=== PATIENT | female | born 1955 | race Caucasian/White ===

== ENCOUNTER 2018-04-19 11:45 | Outpatient (CLI) | payer BC ==
[~2018-04-19] VITALS: Ht 170.2 cm; Wt 95.3 kg
[2018-04-19 12:15] VITALS: BP 149/84
[2018-04-19] MEDS ORDERED: OMEG10005 PO (14:03)
[2018-04-19] MEDS ORDERED: LACT1CAP74 PO (14:03)
[2018-04-19] MEDS ORDERED: ASCO500C17 PO (14:03)
[2018-04-19] MEDS ORDERED: DILT180T9 PO (14:03)
[2018-04-19] MEDS ORDERED: ONCOPLEX PO (14:03)
[2018-04-19] MEDS ORDERED: ROSU10TA27 PO (14:03)
[2018-04-19] MEDS ORDERED: UBID100C17 PO (14:03)
[2018-04-19] MEDS ORDERED: CHOL200085 PO (14:03)
[2018-04-19] MEDS ORDERED: ASPI-586 PO (14:03)
[2018-04-19] MEDS ORDERED: GLUC100016 PO (14:03)
[2018-04-19] MEDS ORDERED: PREN-102 PO (14:03)
== END 2018-04-19 12:10 | disposition home or self-care (01) ==
LOC: PREOP 11:45
PROVIDERS: ATTEND Podiatrist Foot & Ankle Surgery
DX: Z01.818 Encounter for other preprocedural examination (principal)
CPT/HCPCS: 87081

== ENCOUNTER 2018-05-10 06:00 | Day surgery (SDC) | payer BC ==
[~2018-05-10] VITALS: Ht 170.2 cm; Wt 95.3 kg
[~2018-05-10 06:00] MED LIST: ASCO500C17 PO; ASPI-586 PO; CHOL200085 PO; DILT180T9 PO; GLUC100016 PO; LACT1CAP74 PO; OMEG10005 PO; ONCOPLEX PO; PREN-102 PO; ROSU10TA27 PO; UBID100C17 PO
[2018-05-10 06:10] VITALS: BP 135/78
--- OUTSIDE RECORDS SUMMARY | 2018-05-10 06:14 | XMS REPORT | Clinical Summary ---
Author Author Admin, LUIS Organization [facility] [place] Address Unknown Phone Unavailable Allergies, Adverse Reactions, Alerts Allergy Name Reaction Description Start Date Severity Status Provider SULFA Critical Active Ana Elder Conditions or Problems Problem Name Problem Code Onset Date Status Entry Date Provider Comment Standard Description Annotate Uterine Prolapse Active Jann Conklin MD Bladder Prolapse Active Jann Conklin MD Unspecified disorder of bladder Rectocele Active Jann Conklin MD Rectocele Female stress incontinence 625.6 Active Jann Conklin MD Stress incontinence, female Medication List Medication Instructions Start Date Stop Date Generic Name NDC Status Provider Patient Instruction CARDIZEM LA 180 MG ORAL TABLET EXTENDED RELEASE 24 HOUR DILTIAZEM HCL COATED BEADS 72256038968 Active Jann Conklin MD Active CRESTOR 10 MG ORAL TABLET ROSUVASTATIN CALCIUM 82571576527 Active Jann Conklin MD Active ZOCOR 20 MG ORAL TABLET 1 tab by mouth daily SIMVASTATIN 84144056860 No Longer Active Jann Conklin MD Active FISH OIL 1000 MG ORAL CAPSULE DELAYED RELEASE 1 pill by mouth twice daily for cholesterol OMEGA-3 FATTY ACIDS 77311658036 No Longer Active Jann Conklin MD Active CALCIUM CARBONATE 1500 (600 Ca) MG ORAL TABLET 1 tab by mouth daily CALCIUM CARBONATE 98134841150 No Longer Active Jann Conklin MD Active CVS URQQNQGHXZD-WCMFSOCYC-BWZ 500-400-167 MG ORAL TABLET 1 tab by mouth daily ZISBZXHXPYA-FMOJPUEKMFW-IJK 08726581468 Active Ana Elder Active LOVAZA 1 GM ORAL CAPSULE 1 tab by mouth three times daily SPEAI-3-ZLAA ETHYL ESTERS 00327787226 Active Ana Elder Active PROBIOTIC DAILY ORAL CAPSULE 1 pill twice daily PROBIOTIC PRODUCT 14544491651 Active Ana Elder Active ASPIRIN 81 MG ORAL TABLET DELAYED RELEASE 1 po qd ASPIRIN 27613061474 Active Ana Elder Active VITAMIN D3 1000 UNIT ORAL CAPSULE 1 po qd CHOLECALCIFEROL 87286623267 Active Ana Elder Active COQ10 100 MG ORAL CAPSULE 1 pill twice daily COENZYME Q10 08042966564 Active Ana Elder Active CALCIUM CARBONATE 1500 (600 Ca) MG ORAL TABLET 1 tab by mouth daily CALCIUM CARBONATE 1500 (600 Ca) MG ORAL TABLET 411287 CALCIUM CARBONATE Inactive FISH OIL 1000 MG ORAL CAPSULE DELAYED RELEASE 1 pill by mouth twice daily for cholesterol FISH OIL 1000 MG ORAL CAPSULE DELAYED RELEASE OMEGA-3 FATTY ACIDS Inactive ZOCOR 20 MG ORAL TABLET 1 tab by mouth daily ZOCOR 20 MG ORAL TABLET 311335 SIMVASTATIN Inactive Advance Directives Directive Description Start Date PERMISSION TO SHARE Vital Signs Date Name Value Unit Range Description blood pressure, diastolic 80 mm[Hg] BP russell blood pressure, systolic 132 mm[Hg] BP sys pulse rate E&M 88 /min Heart rate temperature E&M 98.2 [degF] Body temperature weight E&M 207 [lb_av] Weight Measured blood pressure, diastolic 78 mm[Hg] BP russell blood pressure, systolic 131 mm[Hg] BP sys pulse rate E&M 91 /min Heart rate temperature E&M 98.3 [degF] Body temperature weight E&M 202 [lb_av] Weight Measured blood pressure, diastolic 74 mm[Hg] BP russell blood pressure, systolic 140 mm[Hg] BP sys height E&M 67 [in_us] Bdy height pulse rate E&M 91 /min Heart rate temperature E&M 98.4 [degF] Body temperature weight E&M 205.5 [lb_av] Weight Measured Encounters Code Encounter Date Provider Facility CPT-13905 Level 3 Est. Patient 15:15:10 EYELET RIVETER Jann Conklin MD [facility] CPT-69061 Level 3 Est. Patient 09:44:38 CDT Jann Conklin MD [facility] CPT-48274 Level 4 New Patient 15:57:37 CDT Jann Conklin MD [facility] Procedures Code Procedure Name Date Entry Date Standard Description CPT-57476 Postop F/U Visit 12:09:57 EYELET RIVETER
--- OUTSIDE RECORDS SUMMARY | 2018-05-10 06:14 | XMS REPORT | Clinical Summary ---
Author Author Admin, QIE Organization [facility] Address Unknown Phone Unavailable Allergies, Adverse Reactions, [...] RELEASE 24 HOUR DILTIAZEM HCL COATED BEADS 23869795832 Active Jann Conklin MD Active CRESTOR 10 MG ORAL TABLET ROSUVASTATIN CALCIUM 90320066716 Active Jann Conklin MD Active ZOCOR 20 MG ORAL TABLET 1 tab by mouth daily SIMVASTATIN 56437339133 No Longer Active Jann Conklin MD Active FISH OIL 1000 MG ORAL CAPSULE DELAYED RELEASE 1 pill by mouth twice daily for cholesterol OMEGA-3 FATTY ACIDS 14119181691 No Longer Active Jann Conklin MD Active CALCIUM CARBONATE 1500 (600 Ca) MG ORAL TABLET 1 tab by mouth daily CALCIUM CARBONATE 43785275287 No Longer Active Jann Conklin MD Active [facility]S AFSKZJAQDAW-KONRPVXFM-BCL 500-400-167 MG ORAL TABLET 1 tab by mouth daily UYPILPJMZQM-LCPLILRNUIV-OVB 91006944204 Active Ana Elder Active LOVAZA 1 GM ORAL CAPSULE 1 tab by mouth three times daily BWQVD-5-MHKA ETHYL ESTERS 03445756137 Active Ana Elder Active PROBIOTIC DAILY ORAL CAPSULE 1 pill twice daily PROBIOTIC PRODUCT 56211287837 Active Ana Elder Active ASPIRIN 81 MG ORAL TABLET DELAYED RELEASE 1 po qd ASPIRIN 63058911513 Active Ana Elder Active VITAMIN D3 1000 UNIT ORAL CAPSULE 1 po qd CHOLECALCIFEROL 63129971550 Active Ana Elder Active COQ10 100 MG ORAL CAPSULE 1 pill twice daily COENZYME Q10 05688464048 Active Ana Elder Active CALCIUM CARBONATE 1500 (600 Ca) MG ORAL TABLET 1 tab by mouth daily CALCIUM CARBONATE 1500 (600 Ca) MG ORAL TABLET 454800 CALCIUM CARBONATE Inactive FISH OIL 1000 MG ORAL CAPSULE DELAYED RELEASE 1 pill by mouth twice daily for cholesterol FISH OIL 1000 MG ORAL CAPSULE DELAYED RELEASE OMEGA-3 FATTY ACIDS Inactive ZOCOR 20 MG ORAL TABLET 1 tab by mouth daily ZOCOR 20 MG ORAL TABLET 296489 SIMVASTATIN Inactive Advance Directives Directive Description Start Date PERMISSION TO SHARE Vital Signs Date Name Value Unit Range Description blood pressure, diastolic 78 mm[Hg] BP russell [...] Measured Encounters Code Encounter Date Provider Facility CPT-15436 Level 3 Est. 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
[2018-05-10] MEDS ORDERED: ceFAZolin INJECTION 1,000 MG in NS (IVPB) 50 ML IV ONE (06:15)
--- OUTSIDE RECORDS SUMMARY | 2018-05-10 06:15 | XMS REPORT | Clinical Summary ---
Author Author Admin, QIE Organization [facility] Address Unknown Phone Unavailable Allergies, Adverse Reactions, [...] RELEASE 24 HOUR DILTIAZEM HCL COATED BEADS 81233879467 Active Jann Conklin MD Active CRESTOR 10 MG ORAL TABLET ROSUVASTATIN CALCIUM 80726303697 Active Jann Conklin MD Active ZOCOR 20 MG ORAL TABLET 1 tab by mouth daily SIMVASTATIN 01597526138 No Longer Active Jann Conklin MD Active FISH OIL 1000 MG ORAL CAPSULE DELAYED RELEASE 1 pill by mouth twice daily for cholesterol OMEGA-3 FATTY ACIDS 06451910379 No Longer Active Jann Conklin MD Active CALCIUM CARBONATE 1500 (600 Ca) MG ORAL TABLET 1 tab by mouth daily CALCIUM CARBONATE 04293092261 No Longer Active Jann Conklin MD Active CVS ZUUEDTZNVDG-MLEGNBVPE-EXU 500-400-167 MG ORAL TABLET 1 tab by mouth daily AZLSVVDPFXJ-OAGAYCNGTMJ-XYV 98425180028 Active Ana Elder Active LOVAZA 1 GM ORAL CAPSULE 1 tab by mouth three times daily YDLBV-0-YWLY ETHYL ESTERS 39541697555 Active Ana Elder Active PROBIOTIC DAILY ORAL CAPSULE 1 pill twice daily PROBIOTIC PRODUCT 96818386090 Active Ana Elder Active ASPIRIN 81 MG ORAL TABLET DELAYED RELEASE 1 po qd ASPIRIN 18734052017 Active Ana Elder Active VITAMIN D3 1000 UNIT ORAL CAPSULE 1 po qd CHOLECALCIFEROL 40475909504 Active Ana Elder Active COQ10 100 MG ORAL CAPSULE 1 pill twice daily COENZYME Q10 35588708092 Active Ana Elder Active CALCIUM CARBONATE 1500 (600 Ca) MG ORAL TABLET 1 tab by mouth daily CALCIUM CARBONATE 1500 (600 Ca) MG ORAL TABLET 854027 CALCIUM CARBONATE Inactive FISH OIL 1000 MG ORAL CAPSULE DELAYED RELEASE 1 pill by mouth twice daily for cholesterol FISH OIL 1000 MG ORAL CAPSULE DELAYED RELEASE OMEGA-3 FATTY ACIDS Inactive ZOCOR 20 MG ORAL TABLET 1 tab by mouth daily ZOCOR 20 MG ORAL TABLET 036166 SIMVASTATIN Inactive Advance Directives Directive Description Start [...] Measured Encounters Code Encounter Date Provider Facility CPT-60028 Level 3 Est. 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
--- OUTSIDE RECORDS SUMMARY | 2018-05-10 06:15 | XMS REPORT | Clinical Summary ---
Author Author Admin, LUIS Organization [facility] [place] Address Unknown Phone Unavailable Allergies, Adverse Reactions, [...] RELEASE 24 HOUR DILTIAZEM HCL COATED BEADS 57595967838 Active Jann Conklin MD Active CRESTOR 10 MG ORAL TABLET ROSUVASTATIN CALCIUM 47885547185 Active Jann Conklin MD Active ZOCOR 20 MG ORAL TABLET 1 tab by mouth daily SIMVASTATIN 37157297829 No Longer Active Jann Conklin MD Active FISH OIL 1000 MG ORAL CAPSULE DELAYED RELEASE 1 pill by mouth twice daily for cholesterol OMEGA-3 FATTY ACIDS 35999096008 No Longer Active Jann Conklin MD Active CALCIUM CARBONATE 1500 (600 Ca) MG ORAL TABLET 1 tab by mouth daily CALCIUM CARBONATE 96143218885 No Longer Active Jann Conklin MD Active CVS YKXHVTETSSP-OWDPPCOSJ-QER 500-400-167 MG ORAL TABLET 1 tab by mouth daily WJWURKXEXTJ-GFGHACHQDAZ-WLM 20550794780 Active Ana Elder Active LOVAZA 1 GM ORAL CAPSULE 1 tab by mouth three times daily WFQYW-3-NGSS ETHYL ESTERS 17963911130 Active Ana Elder Active PROBIOTIC DAILY ORAL CAPSULE 1 pill twice daily PROBIOTIC PRODUCT 11955996547 Active Ana Elder Active ASPIRIN 81 MG ORAL TABLET DELAYED RELEASE 1 po qd ASPIRIN 47705804479 Active Ana Elder Active VITAMIN D3 1000 UNIT ORAL CAPSULE 1 po qd CHOLECALCIFEROL 44588904072 Active Ana Elder Active COQ10 100 MG ORAL CAPSULE 1 pill twice daily COENZYME Q10 21367613477 Active Ana Elder Active CALCIUM CARBONATE 1500 (600 Ca) MG ORAL TABLET 1 tab by mouth daily CALCIUM CARBONATE 1500 (600 Ca) MG ORAL TABLET 101410 CALCIUM CARBONATE Inactive FISH OIL 1000 MG ORAL CAPSULE DELAYED RELEASE 1 pill by mouth twice daily for cholesterol FISH OIL 1000 MG ORAL CAPSULE DELAYED RELEASE OMEGA-3 FATTY ACIDS Inactive ZOCOR 20 MG ORAL TABLET 1 tab by mouth daily ZOCOR 20 MG ORAL TABLET 109986 SIMVASTATIN Inactive Advance Directives Directive Description Start Date PERMISSION TO SHARE Vital Signs Date Name Value Unit Range Description blood pressure, diastolic 74 mm[Hg] BP russell blood pressure, systolic 140 mm[Hg] BP sys height E&M 67 [in_us] Bdy height pulse rate E&M 91 /min Heart rate temperature E&M 98.4 [degF] Body temperature weight E&M 205.5 [lb_av] Weight Measured Encounters Code Encounter Date Provider Facility CPT-85509 Level 3 Est. Patient 09:44:38 CDT Jann Conklin MD [facility] CPT-58921 Level 4 New Patient 15:57:37 CDT Jann Conklin MD [facility]
--- OUTSIDE RECORDS SUMMARY | 2018-05-10 06:15 | XMS REPORT | Clinical Summary ---
Author Author Admin, LUIS Organization [facility] [place] Address Unknown Phone Unavailable Allergies, Adverse Reactions, [...] Generic Name NDC Status Provider Patient Instruction CVS ILOXYVMVIGJ-AXKDMJTLI-DEY 500-400-167 MG ORAL TABS 1 tab by mouth daily MHAYOQICCSY-AHSYYSEGKTZ-CIO 46427546278 Active Ana Elder Active LOVAZA 1 GM CAPS 1 tab by mouth three times daily OMEGA-3- ACID ETHYL ESTERS 85448529535 Active Ana Elder Active CALCIUM 1500 MG TAB 1 tab by mouth daily CALCIUM CARBONATE 61214452011 Active Ana Elder Active PROBIOTIC DAILY CAPS 1 pill twice daily PROBIOTIC PRODUCT 64984831028 Active Ana Elder Active ASPIRIN 81 MG ORAL TBEC 1 po qd ASPIRIN 28334254493 Active Ana Elder Active FISH OIL 1000 MG CPDR 1 pill by mouth twice daily for cholesterol OMEGA-3 FATTY ACIDS 03717242933 Active Ana Elder Active VITAMIN D3 1000 UNIT CAPS 1 po qd CHOLECALCIFEROL 05838992036 Active Ana Elder Active COQ10 100 MG CAPS 1 pill twice daily COENZYME Q10 36619527162 Active Ana Elder Active ZOCOR 20 MG TAB 1 tab by mouth daily SIMVASTATIN 26814604253 Active Ana Elder Active Advance Directives Directive Description Start Date PERMISSION TO SHARE Encounters Code Encounter Date Provider Facility CPT-85763 Level 4 New Patient 15:57:37 CDT Jann Conklin MD [facility] [place]
--- OUTSIDE RECORDS SUMMARY | 2018-05-10 06:15 | XMS REPORT | Clinical Summary ---
Author Author Admin, QIE Organization [facility] Address Unknown Phone Unavailable Allergies, Adverse Reactions, [...] RELEASE 24 HOUR DILTIAZEM HCL COATED BEADS 63756103656 Active Jann Conklin MD Active CRESTOR 10 MG ORAL TABLET ROSUVASTATIN CALCIUM 75382810432 Active Jann Conklin MD Active ZOCOR 20 MG ORAL TABLET 1 tab by mouth daily SIMVASTATIN 09433386460 No Longer Active Jann Conklin MD Active FISH OIL 1000 MG ORAL CAPSULE DELAYED RELEASE 1 pill by mouth twice daily for cholesterol OMEGA-3 FATTY ACIDS 22422836540 No Longer Active Jann Conklin MD Active CALCIUM CARBONATE 1500 (600 Ca) MG ORAL TABLET 1 tab by mouth daily CALCIUM CARBONATE 43658941076 No Longer Active Jann Conklin MD Active CVS UWIXASJVRRY-OYDQFUWCP-DMI 500-400-167 MG ORAL TABLET 1 tab by mouth daily TFFVYEPTPJF-NCYVCNTLECD-BLT 23222837423 Active Ana Elder Active LOVAZA 1 GM ORAL CAPSULE 1 tab by mouth three times daily OQLRY-8-AEST ETHYL ESTERS 75631446019 Active Ana Elder Active PROBIOTIC DAILY ORAL CAPSULE 1 pill twice daily PROBIOTIC PRODUCT 37270769236 Active Ana Elder Active ASPIRIN 81 MG ORAL TABLET DELAYED RELEASE 1 po qd ASPIRIN 44969538923 Active Ana Elder Active VITAMIN D3 1000 UNIT ORAL CAPSULE 1 po qd CHOLECALCIFEROL 95280427409 Active Ana Elder Active COQ10 100 MG ORAL CAPSULE 1 pill twice daily COENZYME Q10 72069518926 Active Ana Elder Active CALCIUM CARBONATE 1500 (600 Ca) MG ORAL TABLET 1 tab by mouth daily CALCIUM CARBONATE 1500 (600 Ca) MG ORAL TABLET 306460 CALCIUM CARBONATE Inactive FISH OIL 1000 MG ORAL CAPSULE DELAYED RELEASE 1 pill by mouth twice daily for cholesterol FISH OIL 1000 MG ORAL CAPSULE DELAYED RELEASE OMEGA-3 FATTY ACIDS Inactive ZOCOR 20 MG ORAL TABLET 1 tab by mouth daily ZOCOR 20 MG ORAL TABLET 572498 SIMVASTATIN Inactive Advance Directives Directive Description Start [...] Measured Encounters Code Encounter Date Provider Facility CPT-63272 Level 3 Est. 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
--- OUTSIDE RECORDS SUMMARY | 2018-05-10 06:15 | XMS REPORT | Clinical Summary ---
Author Author Admin, E Organization [facility] [place] Address Unknown Phone Unavailable Allergies, Adverse Reactions, Alerts Allergy Name Reaction Description Start Date Severity Status Provider SULFA Critical Active Ana Elder Conditions or Problems Problem Name Problem Code Onset Date Status Entry Date Provider Comment Standard Description Annotate Problems Unknown Active Medication List Medication Instructions Start Date Stop Date Generic Name NDC Status Provider Patient Instruction CVS EFWFBQHYVFS-EINVHCZMY-AWI 500-400-167 MG ORAL TABS 1 tab by mouth daily COFVVEIHWTF-ENGSUXIECEX-JJP 58411650451 Active Ana Elder Active LOVAZA 1 GM CAPS 1 tab by mouth three times daily OMEGA-3- ACID ETHYL ESTERS 98816409715 Active Ana Elder Active CALCIUM 1500 MG TAB 1 tab by mouth daily CALCIUM CARBONATE 24557450026 Active Ana Elder Active PROBIOTIC DAILY CAPS 1 pill twice daily PROBIOTIC PRODUCT 47483055645 Active Ana Elder Active ASPIRIN 81 MG ORAL TBEC 1 po qd ASPIRIN 01589409937 Active Ana Elder Active FISH OIL 1000 MG CPDR 1 pill by mouth twice daily for cholesterol OMEGA-3 FATTY ACIDS 33922947570 Active Ana Elder Active VITAMIN D3 1000 UNIT CAPS 1 po qd CHOLECALCIFEROL 85226690198 Active Ana Elder Active COQ10 100 MG CAPS 1 pill twice daily COENZYME Q10 91168395287 Active Ana Elder Active ZOCOR 20 MG TAB 1 tab by mouth daily SIMVASTATIN 24952843994 Active Ana Elder Active
--- OUTSIDE RECORDS SUMMARY | 2018-05-10 06:15 | XMS REPORT | Clinical Summary ---
Author Author Admin, LUIS Organization [facility] [place] Address Unknown Phone Unavailable Allergies, Adverse Reactions, [...] RELEASE 24 HOUR DILTIAZEM HCL COATED BEADS 78772177451 Active Jann Conklin MD Active CRESTOR 10 MG ORAL TABLET ROSUVASTATIN CALCIUM 94873862052 Active Jann Conklin MD Active ZOCOR 20 MG TAB 1 tab by mouth daily SIMVASTATIN 94914160700 No Longer Active Jann Conklin MD Active FISH OIL 1000 MG CPDR 1 pill by mouth twice daily for cholesterol OMEGA-3 FATTY ACIDS 98189237943 No Longer Active Jann Conklin MD Active CALCIUM 1500 MG TAB 1 tab by mouth daily CALCIUM CARBONATE 36082228576 No Longer Active Jann Conklin MD Active CVS HZLHMCFDZNK-INRPGFTPJ-ERO 500-400-167 MG ORAL TABS 1 tab by mouth daily KFBZVDKGWTD-UHRBZZDKSEQ-DVS 54701064374 Active Ana Elder Active LOVAZA 1 GM CAPS 1 tab by mouth three times daily OMEGA-3- ACID ETHYL ESTERS 06741148666 Active Ana Elder Active PROBIOTIC DAILY CAPS 1 pill twice daily PROBIOTIC PRODUCT 18502787642 Active Ana Elder Active ASPIRIN 81 MG ORAL TBEC 1 po qd ASPIRIN 54946714026 Active Ana Elder Active VITAMIN D3 1000 UNIT CAPS 1 po qd CHOLECALCIFEROL 54843909828 Active Ana Elder Active COQ10 100 MG CAPS 1 pill twice daily COENZYME Q10 47171255276 Active Ana Elder Active CALCIUM 1500 MG TAB 1 tab by mouth daily CALCIUM 1500 MG TAB 460398 CALCIUM CARBONATE Inactive FISH OIL 1000 MG CPDR 1 pill by mouth twice daily for cholesterol FISH OIL 1000 MG CPDR OMEGA-3 FATTY ACIDS Inactive ZOCOR 20 MG TAB 1 tab by mouth daily ZOCOR 20 MG TAB 781924 SIMVASTATIN Inactive Advance Directives Directive Description Start [...] Measured Encounters Code Encounter Date Provider Facility CPT-35202 Level 3 Est. Patient 09:44:38 CDT Jann Conklin MD [facility] CPT-27039 Level 4 New Patient 15:57:37 CDT Jann Conklin MD [facility] [place]
--- OUTSIDE RECORDS SUMMARY | 2018-05-10 06:15 | XMS REPORT | Clinical Summary ---
Author Author Admin, LUIS Organization [facility] [place] Address Unknown Phone Unavailable Allergies, Adverse Reactions, [...] RELEASE 24 HOUR DILTIAZEM HCL COATED BEADS 42866516414 Active Jann Conklin MD Active CRESTOR 10 MG ORAL TABLET ROSUVASTATIN CALCIUM 16284109646 Active Jann Conklin MD Active ZOCOR 20 MG TAB 1 tab by mouth daily SIMVASTATIN 71639407729 No Longer Active Jann Conklin MD Active FISH OIL 1000 MG CPDR 1 pill by mouth twice daily for cholesterol OMEGA-3 FATTY ACIDS 34300177030 No Longer Active Jann Conklin MD Active CALCIUM 1500 MG TAB 1 tab by mouth daily CALCIUM CARBONATE 92199847448 No Longer Active Jann Conklin MD Active CVS QIJRZFPLRLW-XDFMQUYOL-WSM 500-400-167 MG ORAL TABS 1 tab by mouth daily SCPGHTIJEIP-MHPXLJKGVSD-VHU 10902824599 Active Ana Elder Active LOVAZA 1 GM CAPS 1 tab by mouth three times daily OMEGA-3- ACID ETHYL ESTERS 05095531405 Active Ana Elder Active PROBIOTIC DAILY CAPS 1 pill twice daily PROBIOTIC PRODUCT 72756880796 Active Ana Elder Active ASPIRIN 81 MG ORAL TBEC 1 po qd ASPIRIN 08855609631 Active Ana Elder Active VITAMIN D3 1000 UNIT CAPS 1 po qd CHOLECALCIFEROL 84393334832 Active Ana Elder Active COQ10 100 MG CAPS 1 pill twice daily COENZYME Q10 64939250007 Active Ana Elder Active CALCIUM 1500 MG TAB 1 tab by mouth daily CALCIUM 1500 MG TAB 679547 CALCIUM CARBONATE Inactive FISH OIL 1000 MG CPDR 1 pill by mouth twice daily for cholesterol FISH OIL 1000 MG CPDR OMEGA-3 FATTY ACIDS Inactive ZOCOR 20 MG TAB 1 tab by mouth daily ZOCOR 20 MG TAB 541467 SIMVASTATIN Inactive Advance Directives Directive Description Start [...] Measured Encounters Code Encounter Date Provider Facility CPT-62788 Level 3 Est. Patient 09:44:38 CDT Jann Conklin MD [facility] CPT-26257 Level 4 New Patient 15:57:37 CDT Jann Conklin MD [facility]
--- OUTSIDE RECORDS SUMMARY | 2018-05-10 06:16 | XMS REPORT | Continuity of Care Document ---
Demographics x Preferred Language Unknown Marital Status Unknown Druze Affiliation Unknown Race Unknown Ethnic Group Unknown Author Author [facility] Organization [facility] Address Unknown Phone Unavailable Allergies Active Description Code Type Severity Reaction Onset Reported/Identified Relationship to Patient Clinical Status Yes sulfa drugs 16 Drug N/A [id number]~lips swell Yes sulfa drugs 16 Drug N/A N/A Yes Sulfa (Sulfonamide Antibiotics) [id number] Drug Allergy Unknown rash, and lips 04/19/2018 Medications There is no data. Problems Date Dx Coded Attending Type Code Diagnosis Diagnosed By 04/20/2018 GRAYSON KEITA DPM Ot Z01.818 ENCOUNTER FOR OTHER PREPROCEDURAL EXAMIN Procedures There is no data. Results Test Result Range CMP - 11/18/13 00:00 ALB 4.7 G/DL 3.5-5 ALP 93 IU/L 32-92 ALT 29 IU/L 12-65 AST 22 IU/L 10-42 BCR 20.0 10-20 BUN 15 MG/DL 7-18 CA 9.3 MG/DL 8.4-10.2 CL 96 MEQ/L 98-107 CO2 28.3 MEQ/L 22-28 CREA 0.75 MG/DL 0.6-1.0 EGFR 80 eGFR >=60 GLU 89 MG/DL 70-105 K 4.0 MEQ/L 3.5-5.1 NA 134 MEQ/L 134-145 OSMSC 268.5 MOSML 280-300 TBIL 1.1 MG/DL 0.1-1.0 TP 7.9 G/DL 6.0-8.3 Albumin/Globulin Ratio 1.5 0-8 Anion Gap 9.7 8-16 Methicillin resistant Staphylococcus aureus (MRSA) screening culture - 12:05 Methicillin resistant Staphylococcus aureus (MRSA) screening culture NEG NRG Encounters ACCT No. Visit Date/Time Discharge Status Pt. Type Provider Facility Loc./Unit Complaint [id number] 11/18/2013 10:49:00 11/18/2013 10:49:00 DIS Outpatient Mitchell LEVINE [facility] LAB [id number] 06/18/2013 00:00:00 Document Registration [id number] 04/19/2018 11:45:00 04/19/2018 12:10:00 DIS Outpatient DAVID KEITA DPMIN Q [facility] PREOP BUNION [id number] 05/10/2018 06:00:00 ACT Outpatient NEELA DPMDAVIDIN Q [facility] SD BUNION [id number] 02/11/2018 10:46:43 02/11/2018 23:59:59 DIS Outpatient MAMADOU KILGORE [facility] [id number] 06/04/2017 08:19:46 06/04/2017 23:59:59 DIS Outpatient MAMADOU KILGORE [facility] [id number] 05/20/2017 06:13:12 05/21/2017 14:58:00 DIS V HARIS TORRES [facility] OBS RAL Sacral colpopexy [id number] 05/20/2017 00:00:00 05/20/2017 23:59:59 CLS Outpatient MAMADOU KILGORE [facility] [id number] 05/14/2017 12:43:51 05/14/2017 23:59:59 DIS Outpatient MAMADOU KILGORE [facility] [id number] 11/11/2016 08:00:00 11/11/2016 23:59:59 CLS Outpatient MAMADOU KILGORE [facility] [id number] 10/16/2016 10:43:37 10/16/2016 23:59:59 CLS Outpatient ADAM LOPEZ [facility] [id number] 06/23/2016 09:04:45 06/23/2016 23:59:59 CLS Outpatient [facility] [id number] 07/08/2017 15:45:03 ACT Unknown [id number] 11/26/2016 21:53:26 ACT Document Registration
--- OUTSIDE RECORDS SUMMARY | 2018-05-10 06:16 | XMS REPORT | Clinical Summary ---
Author Author Admin, LUIS Organization [facility] [place] Address Unknown Phone Unavailable Allergies, Adverse Reactions, [...] Name NDC Status Provider Patient Instruction [facility] [id number] 500-400-167 MG ORAL TABS 1 tab by mouth daily [id number] 27583059957 Active Ana Elder Active LOVAZA 1 GM CAPS 1 tab by mouth three times daily OMEGA-3- ACID ETHYL ESTERS 83935150059 Active Ana Elder Active CALCIUM 1500 MG TAB 1 tab by mouth daily CALCIUM CARBONATE 65767268674 Active Ana Elder Active PROBIOTIC DAILY CAPS 1 pill twice daily PROBIOTIC PRODUCT 28250773160 Active Ana Elder Active ASPIRIN 81 MG ORAL TBEC 1 po qd ASPIRIN 84030029724 Active Ana Elder Active FISH OIL 1000 MG CPDR 1 pill by mouth twice daily for cholesterol OMEGA-3 FATTY ACIDS 65298455483 Active Ana Elder Active VITAMIN D3 1000 UNIT CAPS 1 po qd CHOLECALCIFEROL 48235667872 Active Ana Elder Active COQ10 100 MG CAPS 1 pill twice daily COENZYME Q10 87967933963 Active Ana Elder Active ZOCOR 20 MG TAB 1 tab by mouth daily SIMVASTATIN 71623881972 Active Ana Elder Active Advance Directives Directive Description Start Date PERMISSION TO SHARE Encounters Code Encounter Date Provider Facility CPT-28481 Level 4 New Patient 15:57:37 CDT Jann Conklin MD [facility] [place]
--- OUTSIDE RECORDS SUMMARY | 2018-05-10 06:16 | XMS REPORT | Clinical Summary ---
Author Author Admin, LUIS Organization [facility] [place] Address Unknown Phone Unavailable Allergies, Adverse Reactions, Alerts Allergy Name Reaction Description Start Date Severity Status Provider SULFA Critical Active Ana Elder Conditions or Problems Problem Name Problem Code Onset Date Status Entry Date Provider Comment Standard Description Annotate Uterine Prolapse Active Jann Conklin MD Bladder Prolapse Active Jann Coknlin MD Unspecified disorder of bladder Rectocele Active Jann Conklin MD Rectocele Female stress incontinence 625.6 Active Jann Conklin MD Stress incontinence, female Medication List Medication Instructions Start Date Stop Date Generic Name NDC Status Provider Patient Instruction CARDIZEM LA 180 MG ORAL TABLET EXTENDED RELEASE 24 HOUR DILTIAZEM HCL COATED BEADS 61771936398 Active Jann Conklin MD Active CRESTOR 10 MG ORAL TABLET ROSUVASTATIN CALCIUM 80629499045 Active Jann Conklin MD Active ZOCOR 20 MG ORAL TABLET 1 tab by mouth daily SIMVASTATIN 18364749457 No Longer Active Jann Conklin MD Active FISH OIL 1000 MG ORAL CAPSULE DELAYED RELEASE 1 pill by mouth twice daily for cholesterol OMEGA-3 FATTY ACIDS 83368055524 No Longer Active Jann Conklin MD Active CALCIUM CARBONATE 1500 (600 Ca) MG ORAL TABLET 1 tab by mouth daily CALCIUM CARBONATE 23064006015 No Longer Active Jann Conklin MD Active [facility] [id number] 500-400-167 MG ORAL TABLET 1 tab by mouth daily CYINNBWZOCC-RAWMGLIQZYG-AOI 72189913795 Active Ana Elder Active LOVAZA 1 GM ORAL CAPSULE 1 tab by mouth three times daily XVRGR-3-AGVT ETHYL ESTERS 71456891255 Active Ana Elder Active PROBIOTIC DAILY ORAL CAPSULE 1 pill twice daily PROBIOTIC PRODUCT 09883237213 Active Ana Elder Active ASPIRIN 81 MG ORAL TABLET DELAYED RELEASE 1 po qd ASPIRIN 88990946458 Active Ana Elder Active VITAMIN D3 1000 UNIT ORAL CAPSULE 1 po qd CHOLECALCIFEROL 19732330880 Active Ana Elder Active COQ10 100 MG ORAL CAPSULE 1 pill twice daily COENZYME Q10 99499175892 Active Ana Elder Active CALCIUM CARBONATE 1500 (600 Ca) MG ORAL TABLET 1 tab by mouth daily CALCIUM CARBONATE 1500 (600 Ca) MG ORAL TABLET 289365 CALCIUM CARBONATE Inactive FISH OIL 1000 MG ORAL CAPSULE DELAYED RELEASE 1 pill by mouth twice daily for cholesterol FISH OIL 1000 MG ORAL CAPSULE DELAYED RELEASE OMEGA-3 FATTY ACIDS Inactive ZOCOR 20 MG ORAL TABLET 1 tab by mouth daily ZOCOR 20 MG ORAL TABLET 545827 SIMVASTATIN Inactive Advance Directives Directive Description Start [...] Measured Encounters Code Encounter Date Provider Facility [id number] Level 3 Est. 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
[2018-05-10] MEDS: LACTATED RINGERS 1,000 ML IV PRN ×2 (06:35→08:30)
[2018-05-10] MEDS ORDERED: LIDOCAINE PF 2% 5 ML (XYLOCAINE) VIAL ONE (07:11)
[2018-05-10] MEDS ORDERED: fentaNYL INJECTION 100 MCG/2 ML AMP ONE (07:11)
[2018-05-10] MEDS ORDERED: proPOfol 200 MG/20 ML (DIPRIVAN) VIAL IV ONE (07:11)
[2018-05-10] MEDS ORDERED: MIDAZOLAM 2 MG/2 ML (VERSED) VIAL ONE (07:12)
[2018-05-10] MEDS ORDERED: BUPIVACAINE 0.5% 30 ML (SENSORCAINE) VIAL ONE ×2 (07:22→07:48)
[2018-05-10] MEDS ORDERED: DEXAMETHASONE 10 MG/ML (DECADRON) 1 ML VIAL ONE (07:22)
[2018-05-10] MEDS ORDERED: LIDOCAINE 1% INJ 20 ML 20 ML VIAL ONE (07:22)
--- NOTE | 2018-05-10 07:29 | Progress Note-Pre Operative ---
Pre-Operative Progress Note H&P Reviewed The H&P was reviewed, patient examined and no changes noted. Date Seen by Provider: May 10, 2018 Time Seen by Provider: 07:28 Date H&P Reviewed: May 10, 2018 Time H&P Reviewed: : Pre-Operative Diagnosis: Hallux Valgus Left GRAYSON KEITA DPM May 10, 2018 7:29 am
[2018-05-10] MEDS ORDERED: SEVOFLURANE (ULTANE) 15 ML INHAL SOLN ONE ×2 (08:08→08:45)
[2018-05-10] MEDS ORDERED: PROPOFOL INJECTION 50 ML IV ONE (08:08)
[2018-05-10] MEDS ORDERED: LACTATED RINGERS 1,000 ML IV SCH (09:01)
--- NOTE | 2018-05-10 09:01 | Progress Note-Post Operative ---
Post-Operative Progess Note Surgeon (s)/Director Of Product Marketing (s) Surgeon GRAYSON KEITA DPM Director Of Product Marketing: none Pre-Operative Diagnosis Hallux Valgus Left Post-Operative Diagnosis same Procedure & Operative Findings Date of Procedure 05/10/18 Procedure Performed/Findings Ashish-Alex Type Bunionectomy, left Anesthesia Type General Estimated Blood Loss Estimated blood loss (mL): Minimal Specimens/Packing Specimens Removed None GRAYSON KEITA DPM May 10, 2018 9:01 am
[2018-05-10] MEDS ORDERED: CEPH500C PO (09:04)
[2018-05-10] MEDS ORDERED: ACHD5005 PO (09:04)
[2018-05-10] MEDS ORDERED: HYDROcodone/APAP 5 MG/325 MG (LORTAB) TAB PO PRN (09:15)
--- NOTE | 2018-05-10 09:34 | Anesthesia-General Post-Op ---
MAC Patient Condition Mental Status/LOC: Same as Preop Cardiovascular: Satisfactory Nausea/Vomiting: Absent Respiratory: Satisfactory Pain: Controlled Complications: Absent Post Op Complications Complications None Follow Up Care/Instructions Patient Instructions None needed. Anesthesiology Discharge Order Discharge Order Patient is doing well, no complaints, stable vital signs, no apparent adverse anesthesia problems. No complications reported per nursing. ZI FARLEY CRNA May 10, 2018 09:34
[2018-05-10 10:00] VITALS: BP 117/73
[2018-05-10 10:05] VITALS: BP 117/73
[2018-05-10 10:30] VITALS: BP 115/75
[2018-05-10 11:00] VITALS: BP 121/77
--- NOTE | 2018-05-10 12:48 | Diagnostic Imaging Report ---
INDICATION: Left hip pain. FINDINGS: Two views of the left foot show postop changes from osteotomies of the distal aspect of the first metatarsal and proximal phalanx of the big toe with internal fixation. IMPRESSION: Postop changes from osteotomies from bunionectomy surgery. The bones appear to be in good alignment. Dictated by: Dictated on workstation # [id number]
--- NOTE | 2018-05-10 15:06 | Physical Therapy Ortho Eval ---
PT Orthopedic Evaluation Type of Surgery hallus valgus left Prior Level of Function Current Living Status: Spouse Locomotion (Upon Admit): Independent Established Durable Medical Eq: Front Wheeled Walker, Crutches knee scooter Subjective Subjective Pt reports she prefers to use crutches but has a walker if necessary. Also has a knee scooter. Entry Into Home: Stairs With Railing Steps Into Home: 3 Steps Inside Home: 0 Motor Control Motor Control: Motor Control WNL ROM ROM: WFL Strength Strength: WFL Transfer Transfers (B, C, W/C) (FIM): 5 (6 at end of treatment) Gait Gait Assistive Device: Crutches Right Lower Extremity: Right Weight Bearing Status RLE: Full Weight Bearing Left Lower Extremity: Left Weight Bearing Status LLE: Non Weight Bearing Summary/Comments Gait training with use of crutches as well as with FWW. Stair training with crutches. Pt slow on crutches but able to manage. Also able to use FWW with NWB status. Treatment Rendered Treatment: Gait Train, Step Train Assessment/Goals Goal Time Frame: 1 Visit Safe Ambulation: Yes Safe ambulation with AD and able to maintain NWB status. Pt's spouse present and participated in stair training. Verbalized understanding of use of knee scooter. Plan Treatment Plan: Discharge PT/Family Agrees to Plan: Yes Time Time In: 1110 Time Out: 1130 Total Billed Treatment Time: 20 Billed Treatment Time visit EVL 20 No DAVID CHACON PT May 10, 2018 15:06
--- NOTE | 2018-05-10 15:57 | OPERATIVE REPORT ---
DATE OF SERVICE: SURGEON: Anjleica Mattson DPM. PREOPERATIVE DIAGNOSIS: Hallux abductovalgus metatarsal primus varus, left foot. POSTOPERATIVE DIAGNOSIS: Hallux abductovalgus metatarsal primus varus, left foot. PROCEDURE: Modified Ashish-Alex bunionectomy, left. WOUND CLASS: Clean. ANESTHESIA: General. HEMOSTASIS: Pneumatic thigh tourniquet at 300 mmHg. INDICATIONS: This 63-year-old female presents complaining of painful bunion, left foot. Conservative therapy has met with unsatisfactory results and the patient is agreeable to surgical intervention after risks and complications were discussed at length. No guarantees were extended to the patient and she is willing to proceed. DESCRIPTION OF PROCEDURE: The patient was brought back to the operative table, placed in secure supine position. A general anesthetic was then induced. Pneumatic thigh tourniquet was placed on the left lower extremity over several layers of padding. The left foot was then prepped and draped in the normal sterile manner. There was an injection of 7 mL of 1:1 mixture of 1% Xylocaine, 0.5% Marcaine injected in a Dsouza block. Appropriate timeout was performed. The foot was then elevated and allowed to exsanguinate after which the tourniquet was inflated to 300 mmHg. Attention was then directed to the dorsal aspect of the left first metatarsophalangeal joint where a 6 cm longitudinal linear incision was created. The incision was deepened in the same plane with great care to identify and retract all vital neurovascular structures. All the necessary blood vessels were cauterized as encountered. The incision was deepened in the same plane down to the capsule where a longitudinal capsulotomy was performed. The capsular tissue was reflected mediolaterally exposing the hypertrophic medial eminence of the first metatarsal head, which was resected utilizing the power sagittal saw. The dorsal eminence to the first metatarsal head was also resected with the power sagittal saw. Next, attention was then directed into the first intermetatarsal space where a lateral release was performed. The conjoint tendon of the adductor hallucis was released as well as a lateral capsulorrhaphy. The fibular sesamoidal ligament was also released. The hallux was then forcibly abducted releasing any additional fibers holding in its abnormal position. Attention was redirected to the medial aspect of the first metatarsal head where a Chevron-type osteotomy was performed from medial to lateral allowing the capital fragment to translocate laterally and was fixated in its corrected position utilizing a 0.062 threaded K-wire driven from proximal dorsal to plantar distal across the osteotomy. Excellent bony apposition and fixation was appreciated at this time. The K-wire was cut flush with the dorsal aspect of the first metatarsal. The head of the first metatarsal was further contoured and smoothed with a power bur. The wound was flushed with copious amounts of normal saline. Attention was then directed to the diaphysis of the proximal phalanx of the left hallux where subperiosteal dissection was carried out. Next, a wedge of bone was resected with the power sagittal saw with the base medial and the lateral cortices held intact. The wedge of bone was resected and two airplane pilot helper holes were created at the dorsal medial aspect of the osteotomy allowing for a 28-gauge monofilament wire to pass through these airplane pilot helper holes securing the osteotomy in a closed position. Excellent bony apposition and fixation was appreciated at this time. The wound was flushed with copious amounts of normal saline throughout the procedure. Closure was then performed in layers. Deep closure was performed with 3-0 Vicryl, superficial with 4-0 Vicryl, skin closure with 4-0 Prolene in a horizontal mattress type stitch. Postoperative injection consisted of 10 mL of 0.5% Marcaine injected in a Dsouza block as well as 10 mg dexamethasone into the first intermetatarsal space. The tourniquet was released noting appropriate cap refill time to all digits of the left foot. Postoperative dressing consisted of Betadine soaked Adaptic, sterile 4 x 4, sterile Kerlix, all secured with a Coban wrap. The patient tolerated the anesthesia and procedure well, was transported from the operating room to the recovery area with vital signs stable and vascular status intact to all digits of the left foot. The patient is to follow up in my office in 10 days' period of time or sooner if necessary. Job ID: [id number] DocumentID: [id number] Dictated Date: 05/10/2018 09:10:42 Pattern Chart Writer Date: 05/10/2018 15:57:00 Dictated By: TOMASA MILLARD
== END 2018-05-10 12:00 | disposition home or self-care (01) ==
LOC: SDC 06:00
PROVIDERS: ATTEND Podiatrist Foot & Ankle Surgery
DX: M20.12 Hallux valgus (acquired), left foot (principal); E78.5 Hyperlipidemia, unspecified; Z79.82 Long term (current) use of aspirin; Z79.899 Other long term (current) drug therapy
CPT/HCPCS: 73620

== ENCOUNTER 2019-01-05 05:32 | Outpatient (CLI) | payer BC ==
[~2019-01-05] VITALS: Ht 170.2 cm; Wt 93.0 kg
[~2019-01-05 05:32] MED LIST changes: +ACHD5005 PO; +CEPH500C PO; +CHOL200014 PO; -CHOL200085 PO
== END 2019-01-05 16:11 | disposition home or self-care (01) ==
LOC: PREOP 05:32
PROVIDERS: ATTEND Podiatrist Foot & Ankle Surgery
DX: Z01.818 Encounter for other preprocedural examination (principal)